=== PATIENT | female | born 1990 | race Caucasian/White ===

== ENCOUNTER 2018-03-04 08:41 | Emergency (ER) | payer OTHER ==
[2018-03-04] MEDS ORDERED: KETOROLAC 30 MG/ML INJ ONE (10:02)
--- NOTE | 2018-03-04 10:24 | ER ---
Nurse's Notes [facility] Name: Rocio Elizabeth Age: 27 yrs Sex: Female : 1990 Arrival Date: 03/04/2018 Time: 08:49 Bed 12 Private MD: Diagnosis: Low back pain Presentation: 03/04 09:33 Presenting complaint: Patient states: was at work, when the dog she was handling bolted sg pulling me forward and I guess I stepped into a whole, now my lower back hurts, the pain is relieved when I can hold myself up in a sitting position, it feels like it relieves a lot of the pressure. Transition of care: patient was not received from another setting of care. Onset of symptoms was March 04, 2018. Risk Assessment: Do you want to hurt yourself or someone else? Patient reports no desire to harm self or others. Initial Sepsis Screen: Does the patient meet any 2 criteria? No. Patient's initial sepsis screen is negative. Does the patient have a suspected source of infection? No. Patient's initial sepsis screen is negative. Care prior to arrival: None. 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 - Social history:: Smoking status: Patient uses tobacco products, smokes one pack cigarettes per day. - Ebola Screening: : Patient negative for fever greater than or equal to 101.5 degrees Fahrenheit, and additional compatible Ebola Virus Disease symptoms Patient denies exposure to infectious person Patient denies travel to an Ebola-affected area in the 21 days before illness onset No symptoms or risks identified at this time. Screenin:04 Abuse screen: Denies threats or abuse. Denies injuries from another. Nutritional sg screening: No deficits noted. Tuberculosis screening: No symptoms or risk factors identified. Never had TB. Fall Risk None identified. Assessment: 10:03 General: Appears in no apparent distress. uncomfortable, well groomed, well developed, sg well nourished, Behavior is calm, cooperative, appropriate for age. Pain: Complains of pain in low back area Quality of pain is described as aching, sharp. Neuro: Level of Consciousness is awake, alert, obeys commands, Oriented to person, place, time, situation, Assembler Flexible Leads are equal bilaterally Moves all extremities. Full function Gait is steady, Speech is normal, Facial symmetry appears normal, Pupils are PERRLA. Cardiovascular: Heart tones S1 S2 present Capillary refill is brisk in bilateral fingers Patient's skin is warm and dry. Chest pain is denied. Respiratory: Airway is patent Respiratory effort is even, unlabored, Respiratory pattern is regular, symmetrical, Breath sounds are clear. GI: Abdomen is round non-distended, Reports normal bowel habits, tolerance of fluids, tolerance of food, Patient currently denies diarrhea, nausea, pain, vomiting. : No signs and/or symptoms were reported regarding the genitourinary system. EENT: No signs and/or symptoms were reported regarding the EENT system. Derm: Skin is pink, warm \T\ dry. Musculoskeletal: Circulation, motion, and sensation intact. Range of motion: intact in all extremities, Swelling absent Reports pain in low back area. Vital Signs: 09:37 BP 125 / 75; Pulse 89; Resp 17; Pulse Ox 99% on R/A; Weight 86.18 kg; Height 5 ft. 5 sg in. (165.10 cm); Pain 10; 09:37 Body Mass Index 31.62 (86.18 kg, 165.10 cm) ED Course: 08:49 Patient arrived in ED. as 09:36 Triage completed. sg 09:37 Arm band placed on. sg 09:38 Juanito Torres PA is PHCP. jr8 09:38 Tucker Randle MD is Attending Physician. jr8 09:57 Grayson Cyr, NAHUM is Primary Nurse. sg 10:03 Patient has correct armband on for positive identification. Bed in low position. Call sg light in reach. Pulse ox on. NIBP on. 10:05 No provider procedures requiring assistance completed. sg 10:30 Patient did not have IV access during this emergency room visit. sg Administered Medications: 10:03 Drug: TORadol 60 mg {Note: L ventrogluteal.} Route: IM; Site: Other; sg 10:40 Follow up: Response: No adverse reaction; Pain is decreased sg Outcome: 10:23 Discharge ordered by . libra 10:30 Discharged to home ambulatory, with family. sg 10:30 Condition: good 10:30 Discharge instructions given to patient, Instructed on discharge instructions, follow up and referral plans. medication usage, safety practices, Demonstrated understanding of instructions, follow-up care, medications, Prescriptions given X 3. 10:33 Patient left the ED. aa5 Signatures: Grayson Cyr RN RN sg Martinez, Amelia as Calderon, Audri, RN RN aa5 Juanito Torres PA PA jr8
--- NOTE | 2018-03-04 10:24 | EDPHYS ---
Physician Documentation [facility] Name: Rocio Elizabeth Age: 27 yrs Sex: Female : 1990 Arrival Date: 03/04/2018 Time: 08:49 Bed 12 Private MD: ED Physician Tucker Randle HPI: 03/04 09:56 This 27 yrs old Female presents to ER via Ambulatory with complaints of Low jr8 Back Pain. 09:56 The patient presents with pain that is acute. The symptoms are located in the low back. jr8 The pain does not radiate. The problem was sustained from twisting. Onset: The symptoms/episode began/occurred acutely, today. Modifying factors: The patient symptoms are alleviated by nothing, the patient symptoms are aggravated by any movement. Associated signs and symptoms: The patient has no apparent associated signs or symptoms. Severity of symptoms: At their worst the symptoms were moderate, in the emergency department the symptoms are unchanged. The patient has not experienced similar symptoms in the past. The patient has not recently seen a physician. Was walking dog at [facility] and twisted back when he pulled. Pain since incident . 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 - Social history:: Smoking status: Patient uses tobacco products, smokes one pack cigarettes per day. - Ebola Screening: : Patient negative for fever greater than or equal to 101.5 degrees Fahrenheit, and additional compatible Ebola Virus Disease symptoms Patient denies exposure to infectious person Patient denies travel to an Ebola-affected area in the 21 days before illness onset No symptoms or risks identified at this time. ROS: 09:56 Eyes: Negative for injury, pain, redness, and discharge, ENT: Negative for injury, jr8 pain, and discharge, Neck: Negative for injury, pain, and swelling, Cardiovascular: Negative for chest pain, palpitations, and edema, Respiratory: Negative for shortness of breath, cough, wheezing, and pleuritic chest pain, Abdomen/GI: Negative for abdominal pain, nausea, vomiting, diarrhea, and constipation, MS/Extremity: Negative for injury and deformity, Skin: Negative for injury, rash, and discoloration, Neuro: Negative for headache, weakness, numbness, tingling, and seizure. 09:56 Back: Positive for pain at rest, pain with movement, of the low back area. Exam: 09:56 Cardiovascular: Regular rate and rhythm with a normal S1 and S2. No gallops, murmurs, jr8 or rubs. Normal PMI, no JVD. No pulse deficits. Respiratory: Lungs have equal breath sounds bilaterally, clear to auscultation and percussion. No rales, rhonchi or wheezes noted. No increased work of breathing, no retractions or nasal flaring. Abdomen/GI: Soft, non-tender, with normal bowel sounds. No distension or tympany. No guarding or rebound. No evidence of tenderness throughout. Skin: Warm, dry with normal turgor. Normal color with no rashes, no lesions, and no evidence of cellulitis. MS/ Extremity: Pulses equal, no cyanosis. Neurovascular intact. Full, normal range of motion. Neuro: Awake and alert, GCS 15, oriented to person, place, time, and situation. Cranial nerves II-XII grossly intact. Motor strength 5/5 in all extremities. Sensory grossly intact. Cerebellar exam normal. Normal gait. 09:56 Back: pain, that is moderate, of the low back area, ROM is painful, with all movement, normal spinal alignment noted, CVA tenderness, is absent, muscle spasm, is appreciated in the left low back and right low back. Vital Signs: 09:37 BP 125 / 75; Pulse 89; Resp 17; Pulse Ox 99% on R/A; Weight 86.18 kg; Height 5 ft. 5 sg in. (165.10 cm); Pain 10/10; 09:37 Body Mass Index 31.62 (86.18 kg, 165.10 cm) MDM: 09:38 Patient medically screened. jr8 10:22 Data reviewed: vital signs, nurses notes, and as a result, I will discharge patient. jr8 Data interpreted: Pulse oximetry: on room air is 99 %. Interpretation: normal. Counseling: I had a detailed discussion with the patient and/or guardian regarding: the historical points, exam findings, and any diagnostic results supporting the discharge/admit diagnosis, the need for outpatient follow up, a family practitioner, to return to the emergency department if symptoms worsen or persist or if there are any questions or concerns that arise at home. Administered Medications: 10:03 Drug: TORadol 60 mg {Note: L ventrogluteal.} Route: IM; Site: Other; 10:40 Follow up: Response: No adverse reaction; Pain is decreased sg Disposition: 15:22 Co-signature as Attending Physician, Tucker Randle MD I agree with the assessment and kdr plan of care. Disposition: 03/04/18 10:23 Discharged to Home. Impression: Low back pain. - Condition is Stable. - Discharge Instructions: Back Pain, Adult, Musculoskeletal Pain, Back Exercises, [id number], Heat Therapy. - Prescriptions for Mobic 7.5 mg Oral Tablet - take 1 tablet by ORAL route once daily take with food; 20 tablet. Cyclobenzaprine 10 mg Oral Tablet - take 1 tablet by ORAL route every 8 hours As needed; 30 tablet. Medrol (Bossman) 4 mg Oral Tablets, Dose Pack - take 1 tablet by ORAL route as directed - follow package instructions; 1 packet. - Work release form, Medication Reconciliation Form, Thank You Letter, Antibiotic Education, Prescription Opioid Use form. - Follow up: Private Physician; When: 1 week; Reason: Recheck today's complaints, Continuance of care, Re-evaluation by your physician. - Problem is new. - Symptoms have improved. Signatures: Grayson Cyr RN RN Tucker Randle MD MD [facility] Claudia Martinez RN RN aa5 Juanito Torres PA PA jr8 Corrections: (The following items were deleted from the chart) 10:33 10:23 03/04/2018 10:23 Discharged to Home. Impression: Low back pain. Condition is aa5 Stable. Forms are Medication Reconciliation Form, Thank You Letter, Antibiotic Education, Prescription Opioid Use. Follow up: Private Physician; When: 1 week; Reason: Recheck today's complaints, Continuance of care, Re-evaluation by your physician. Problem is new. Symptoms have improved. jr8
== END 2018-03-04 10:33 | disposition home or self-care (01) ==
LOC: ER 08:41
DX: M54.5 Low back pain (principal); F32.9 Major depressive disorder, single episode, unspecified; F17.210 Nicotine dependence, cigarettes, uncomplicated
CPT/HCPCS: 96372; 99283

== ENCOUNTER 2018-05-25 13:27 | Emergency (ER) | payer OTHER, SELFPAY ==
--- NOTE | 2018-05-25 13:48 | EDPHYS ---
Physician Documentation [facility] Name: Rocio Elizabeth Age: 28 yrs Sex: Female : 1990 Arrival Date: 05/25/2018 Time: 13:31 Bed 14 Private MD: ED Physician Kris Armstrong HPI: 05/25 13:41 This 28 yrs old Female presents to ER via Ambulatory with complaints of Dog kb Bite. 13:41 The patient was bitten on the dorsal aspect of distal phalanx of right thumb and palmar kb aspect of distal phalanx of right thumb, by a dog, while playing, at work. Onset: The symptoms/episode began/occurred just prior to arrival. Animal information: The animal was reported to appear healthy. Animal's vaccinations are not up to date. The animal is known and can be quarantined, Animal control has been notified. Secondary to the bite the patient reports erythema, pain, multiple puncture wounds, swelling. Associated signs and symptoms: Pertinent positives: pain at site, swelling at site, tenderness. Severity of symptoms: At their worst the symptoms were moderate, in the emergency department the symptoms are unchanged. The patient has not experienced similar symptoms in the past. The patient has not recently seen a physician. 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 - Social history:: Smoking status: Patient uses tobacco products, smokes one pack cigarettes per day. Patient/guardian denies using alcohol. - Ebola Screening: : Patient negative for fever greater than or equal to 101.5 degrees Fahrenheit, and additional compatible Ebola Virus Disease symptoms Patient denies exposure to infectious person Patient denies travel to an Ebola-affected area in the 21 days before illness onset. ROS: 13:41 Constitutional: Negative for fever, chills, and weight loss, Cardiovascular: Negative kb for chest pain, palpitations, and edema, Respiratory: Negative for shortness of breath, cough, wheezing, and pleuritic chest pain, Abdomen/GI: Negative for abdominal pain, nausea, vomiting, diarrhea, and constipation, MS/Extremity: Negative for injury and deformity, Neuro: Negative for headache, weakness, numbness, tingling, and seizure. 13:41 Skin: Positive for erythema, puncture, swelling, of the palmar aspect of distal phalanx of right thumb and dorsal aspect of distal phalanx of right thumb. Exam: 13:41 Constitutional: This is a well developed, well nourished patient who is awake, alert, kb and in no acute distress. Head/Face: Normocephalic, atraumatic. Chest/axilla: Normal chest wall appearance and motion. Nontender with no deformity. No lesions are appreciated. Cardiovascular: Regular rate and rhythm with a normal S1 and S2. No gallops, murmurs, or rubs. Normal PMI, no JVD. No pulse deficits. Respiratory: Lungs have equal breath sounds bilaterally, clear to auscultation and percussion. No rales, rhonchi or wheezes noted. No increased work of breathing, no retractions or nasal flaring. Abdomen/GI: Soft, non-tender, with normal bowel sounds. No distension or tympany. No guarding or rebound. No evidence of tenderness throughout. Back: No spinal tenderness. No costovertebral tenderness. Full range of motion. MS/ Extremity: Pulses equal, no cyanosis. Neurovascular intact. Full, normal range of motion. Neuro: Awake and alert, GCS 15, oriented to person, place, time, and situation. Cranial nerves II-XII grossly intact. Motor strength 5/5 in all extremities. Sensory grossly intact. Cerebellar exam normal. Normal gait. 13:41 Skin: injury, bite(s), superficial, of the palmar aspect of distal phalanx of right thumb and dorsal aspect of distal phalanx of right thumb. Vital Signs: 13:35 BP 125 / 76; Pulse 110; Resp 18; Temp 97.6(TE); Pulse Ox 98% on R/A; Weight 79.83 kg; hj Height 5 ft. 5 in. (165.10 cm); Pain 6/10; 13:35 Body Mass Index 29.29 (79.83 kg, 165.10 cm) MDM: 13:33 Patient medically screened. kb 13:46 Data reviewed: vital signs, nurses notes. Data interpreted: Pulse oximetry: on room air kb is 98 %. Interpretation: normal. Counseling: I had a detailed discussion with the patient and/or guardian regarding: the historical points, exam findings, and any diagnostic results supporting the discharge/admit diagnosis, the need for outpatient follow up, a family practitioner, to return to the emergency department if symptoms worsen or persist or if there are any questions or concerns that arise at home. 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 Exp: bp 05/19/2020. Lot #: [id number]. } Route: IM; Site: left deltoid; 13:57 Follow up: Response: No adverse reaction bp 13:47 Drug: Augmentin 875 mg Route: PO; bp 13:57 Follow up: Response: No adverse reaction bp Disposition: 05/26 07:05 Co-signature as Attending Physician, Kris Armstorng MD I agree with the assessment and shakir plan of care. Disposition: 05/25/18 13:47 Discharged to Home. Impression: Bitten by dog. - Condition is Stable. - Discharge Instructions: Animal Bite, [id number]. - Prescriptions for Augmentin 875- 125 mg Oral Tablet - take 1 tablet by ORAL route every 12 hours for 7 days; 14 tablet. - Medication Reconciliation Form, Thank You Letter, Antibiotic Education, Prescription Opioid Use form. - Follow up: Emergency Department; When: As needed; Reason: Worsening of condition. Follow up: Private Physician; When: 2 - 3 days; Reason: Recheck today's complaints, Continuance of care, Re-evaluation by your physician. Signatures: Pat Garcia, FIRE MARSHAL REFINERY-C FIRE MARSHAL REFINERY-Dannyb Kris Armstrong MD MD cha Joaquin, Henry, RN RN Zaki Norman, NAHUM RN bp Corrections: (The following items were deleted from the chart) 05/25 13:56 13:47 05/25/2018 13:47 Discharged to Home. Impression: Bitten by dog. Condition is bp Stable. Forms are Medication Reconciliation Form, Thank You Letter, Antibiotic Education, Prescription Opioid Use. Follow up: Emergency Department; When: As needed; Reason: Worsening of condition. Follow up: Private Physician; When: 2 - 3 days; Reason: Recheck today's complaints, Continuance of care, Re-evaluation by your physician. kb
--- NOTE | 2018-05-25 13:48 | ER ---
Nurse's Notes [facility] Name: Rocio Elizabeth Age: 28 yrs Sex: Female : 1990 Arrival Date: 05/25/2018 Time: 13:31 Bed 14 Private MD: Diagnosis: Bitten by dog Presentation: 05/25 13:31 Presenting complaint: Patient states: i worked at [employer] and was bitten by a newly intake hj medium dog today at my R thumb, unknown if vaccination is updated;. Transition of care: patient was not received from another setting of care. Onset of symptoms was May 25, 2018. Risk Assessment: Do you want to hurt yourself or someone else? Patient reports no desire to harm self or others. Initial Sepsis Screen: Does the patient meet any 2 criteria? No. Patient's initial sepsis screen is negative. Does the patient have a suspected source of infection? No. Patient's initial sepsis screen is negative. Care prior to arrival: None. 13:31 Method Of Arrival: Ambulatory 13:31 Acuity: KO 4 hj Triage Assessment: 13:33 Bite description: bite sustained to dorsal aspect of distal phalanx of right thumb by a hj dog, animal information: Appearance: appeared well, is from animal, vaccination(s) is unknown, was sustained 30-60 minutes ago. Animal status: unknown but captured. 13:34 General: Appears in no apparent distress. uncomfortable, Behavior is calm, cooperative, hj appropriate for age. Pain: Complains of pain in dorsal aspect of distal phalanx of right thumb Pain currently is 6 out of 10 on a pain scale. 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 - Social history:: Smoking status: Patient uses tobacco products, smokes one pack cigarettes per day. Patient/guardian denies using alcohol. - Ebola Screening: : Patient negative for fever greater than or equal to 101.5 degrees Fahrenheit, and additional compatible Ebola Virus Disease symptoms Patient denies exposure to infectious person Patient denies travel to an Ebola-affected area in the 21 days before illness onset. Screenin:34 Abuse screen: Denies threats or abuse. Denies injuries from another. Nutritional hj screening: No deficits noted. Tuberculosis screening: No symptoms or risk factors identified. Fall Risk None identified. Assessment: 13:38 General: Appears in no apparent distress. comfortable, Behavior is calm, cooperative, bp appropriate for age. Pain: Complains of pain in dorsal aspect of distal phalanx of right thumb. Neuro: Level of Consciousness is awake, alert, obeys commands, Oriented to person, place, time, situation, Appropriate for age. Cardiovascular: No deficits noted. Respiratory: Airway is patent Respiratory effort is even, unlabored, Respiratory pattern is regular, symmetrical. GI: No signs and/or symptoms were reported involving the gastrointestinal system. : No signs and/or symptoms were reported regarding the genitourinary system. EENT: No deficits noted. Derm: Wound noted dorsal aspect of distal phalanx of right thumb. Musculoskeletal: Circulation, motion, and sensation intact. Range of motion: intact in all extremities. 13:38 Derm: Skin is intact, is healthy with good turgor, Skin is pink, warm \T\ dry. bp 13:55 Reassessment: PT D/C HOME AMBULATORY, DX WITH DOG BITE. bp Vital Signs: 13:35 BP 125 / 76; Pulse 110; Resp 18; Temp 97.6(TE); Pulse Ox 98% on R/A; Weight 79.83 kg; hj Height 5 ft. 5 in. (165.10 cm); Pain 6/10; 13:35 Body Mass Index 29.29 (79.83 kg, 165.10 cm) ED Course: 13:31 Patient arrived in ED. hj 13:32 Triage completed. hj 13:33 Pat Garcia FNP-C is PHCP. kb 13:33 Kris Armstrong MD is Attending Physician. kb 13:35 Arm band placed on left wrist. hj 13:36 Patient has correct armband on for positive identification. Bed in low position. Call light in reach. Side rails up X 1. 13:38 Zaki Hernandez, RN is Primary Nurse. bp 13:55 No provider procedures requiring assistance completed. Patient did not have IV access bp during this emergency room visit. Administered Medications: 13:47 Drug: Tetanus-Diphtheria Toxoid Adult 0.5 ml {Travel Accommodations Rater: Trampoline. Exp: bp 05/19/2020. Lot #: [id number]. } Route: IM; Site: left deltoid; 13:57 Follow up: Response: No adverse reaction bp 13:47 Drug: Augmentin 875 mg Route: PO; bp 13:57 Follow up: Response: No adverse reaction bp Outcome: 13:47 Discharge ordered by MD. may 13:55 Discharged to home ambulatory. bp 13:55 Condition: stable 13:55 Discharge instructions given to patient, Instructed on discharge instructions, follow up and referral plans. medication usage, wound care, Demonstrated understanding of instructions, follow-up care, medications, wound care, Prescriptions given X 1. 13:56 Patient left the ED. bp Signatures: Pat Garcia FNP-C FNP-Juan Ramos, RN RN Zaki Norman RN RN bp Corrections: (The following items were deleted from the chart) 13:36 13:35 Pulse 110bpm; Resp 18bpm; Pulse Ox 98% RA; Temp 97.6F Temporal; 79.83 kg; Height hj 5 ft. 5 in.; BMI: 29.2; Pain 6/10; hj 13:41 13:35 Derm: Skin Skin is bp
[2018-05-25] MEDS ORDERED: AMOX/K CLAV 875 MG TAB ONE (13:49)
[2018-05-25] MEDS ORDERED: TETANUS & DIPHTHERIA TOX,ADULT 0.5 ML VIAL ONE (13:49)
== END 2018-05-25 13:56 | disposition home or self-care (01) ==
LOC: ER 13:27
DX: S60.371A Other superficial bite of right thumb, initial encounter (principal); W54.0XXA Bitten by dog, initial encounter; Y93.89 Activity, other specified; Y92.89 Other specified places as the place of occurrence of the external cause; Y99.8 Other external cause status; Z72.0 Tobacco use; Z23 Encounter for immunization; F32.9 Major depressive disorder, single episode, unspecified
CPT/HCPCS: 90714; 99283

== ENCOUNTER 2019-06-15 22:24 | Emergency (ER) | payer SELFPAY ==
--- NOTE | 2019-06-15 23:00 | ER ---
Nurse's Notes [facility] Name: Rocio Elizabeth Age: 29 yrs Sex: Female : 1990 Arrival Date: 06/15/2019 Time: 22:29 Bed Waiting Private MD: Diagnosis: Presentation: 06/15 22:58 Presenting complaint: noted by registration that pt left. ED Course: 22:29 Patient arrived in ED. ag3 22:37 Patient's name was called from ER lobby. Unable to locate patient. Will disposition as fc left without being seen by a provider. Administered Medications: No medications were administered Outcome: 22:58 Patient left the ED. Signatures: Eliane Caballero RN RN Aarti Ramirez ag3
== END 2019-06-15 22:58 | disposition left against medical advice (07) ==
LOC: ER 22:24
DX: Z53.21 Procedure and treatment not carried out due to patient leaving prior to being seen by health care provider (principal)
CPT/HCPCS: 99281

== ENCOUNTER 2019-06-16 13:09 | Emergency (ER) | payer SELFPAY ==
[2019-06-16] MEDS ORDERED: IBUPROFEN 400 MG TAB ONE (13:55)
[2019-06-16] MEDS ORDERED: IBUPROFEN 200 MG TAB PO ONE (13:56)
--- NOTE | 2019-06-16 14:26 | ER ---
Nurse's Notes [facility] Name: Rocio Elizabeth Age: 29 yrs Sex: Female : 1990 Arrival Date: 06/16/2019 Time: 13:11 Bed 19 Private MD: Unknown, Unknown Diagnosis: Acute upper respiratory infection, unspecified;Acute pharyngitis Presentation: 06/16 13:15 Presenting complaint: Patient states: sore throat started 4 days ago, next day started sv with body aches and chest burning. Denies fever. Transition of care: patient was not received from another setting of care. Onset of symptoms was June 12, 2019. Risk Assessment: Do you want to hurt yourself or someone else? Patient reports no desire to harm self or others. Initial Sepsis Screen: Does the patient meet any 2 criteria? No. Patient's initial sepsis screen is negative. Does the patient have a suspected source of infection? No. Patient's initial sepsis screen is negative. Care prior to arrival: None. 13:15 Method Of Arrival: Ambulatory sv 13:15 Acuity: KO 3 sv FILLETER: 16:17 LMP N/A - iw Historical: - Allergies: 13:16 No Known Allergies; sv - PMHx: 13:16 Depression; sv - Immunization history:: Adult Immunizations up to date. - Social history:: Smoking status: Patient uses tobacco products, smokes one pack cigarettes per day. - Ebola Screening: : No symptoms or risks identified at this time. Screenin:32 Abuse screen: Denies threats or abuse. Nutritional screening: No deficits noted. iw Tuberculosis screening: No symptoms or risk factors identified. Fall Risk None identified. Assessment: 13:32 General: Appears in no apparent distress. comfortable, Behavior is calm, cooperative, iw Reports fever for > 3 days. Pain: Complains of pain in throat Pain currently is 4 out of 10 on a pain scale. Pain began 4 days ago. Neuro: Level of Consciousness is awake, alert, obeys commands, Oriented to person, place, time, situation, Appropriate for age. Cardiovascular: Capillary refill < 3 seconds Patient's skin is warm and dry. Respiratory: Airway is patent Respiratory effort is even, unlabored, Respiratory pattern is regular, symmetrical. GI: Abdomen is flat, Patient currently denies nausea, vomiting. Derm: Skin is intact, is healthy with good turgor, Skin is pink, warm \T\ dry. Musculoskeletal: Capillary refill < 3 seconds, Range of motion: intact in all extremities. 14:31 Reassessment: Patient appears in no apparent distress at this time. I agree with above assessment. Vital Signs: 13:16 BP 133 / 75; Pulse 97; Resp 18; Temp 98.2; Pulse Ox 98% ; Weight 72.57 kg; Height 5 ft. sv 5 in. (165.10 cm); Pain 4/10; 14:40 BP 128 / 69; Pulse 62; Resp 16; Pulse Ox 99% on R/A; Pain 2/10; em 13:16 Body Mass Index 26.63 (72.57 kg, 165.10 cm) sv ED Course: 13:11 Patient arrived in ED. ag5 13:12 Unknown, Unknown is Private Physician. ag5 13:16 Triage completed. sv 13:17 Liban Bran PA is [facility]. [facility] 13:17 Tucker Randle MD is Attending Physician. [facility] 13:17 Arm band placed on. sv 13:21 Antonietta Hinkle, RN is Primary Nurse. iw 13:32 Patient has correct armband on for positive identification. Bed in low position. Call iw light in reach. Adult w/ patient. 13:55 Flu and/or RSV swab sent to lab. Strep swab sent to lab. em 14:39 No provider procedures requiring assistance completed. Patient did not have IV access em during this emergency room visit. Administered Medications: 14:01 Drug: Motrin 600 mg Route: PO; em 14:31 Follow up: Response: No adverse reaction em Outcome: 14:25 Discharge ordered by . [facility] 14:39 Discharged to home ambulatory. em 14:39 Condition: good 14:39 Discharge instructions given to patient, Instructed on discharge instructions, follow up and referral plans. medication usage, Demonstrated understanding of instructions, follow-up care, medications, Prescriptions given X 1. 14:40 Patient left the ED. em Signatures: Lainey Navas, RN Anabela Galvez ch, RN RN Liban Bran PA PA Stefano Kaplan, VALIDATION INTERN VALIDATION INTERN em Antonietta Hinkle, NAHUM RN Ino Gabriel [facility]
--- NOTE | 2019-06-16 14:26 | EDPHYS ---
Physician Documentation [facility] Name: Rocio Elizabeth Age: 29 yrs Sex: Female : 1990 Arrival Date: 06/16/2019 Time: 13:11 Bed 19 Private MD: Unknown, Unknown ED Physician Tucker Randle HPI: 06/16 13:37 This 29 yrs old Female presents to ER via Ambulatory with complaints of Cold jmm Symptoms. 13:37 The patient or guardian reports cough. Onset: The symptoms/episode began/occurred jmm gradually, 2 day(s) ago. Modifying factors: The symptoms are alleviated by nothing. the symptoms are aggravated by lying flat. Associated signs and symptoms: Pertinent positives: sore throat. This is a 29 year old female with a history of depression that presents to the ED with complaints of cough, sore throat, congestion, body aches worsening last night. Patient states multiple coworkers have similar symptoms. . 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 - Social history:: Smoking status: Patient uses tobacco products, smokes one pack cigarettes per day. - Ebola Screening: : No symptoms or risks identified at this time. ROS: 13:37 Constitutional: Negative for fever, chills, and weight loss, Cardiovascular: Negative jmm for chest pain, palpitations, and edema. 13:37 Abdomen/GI: Negative for abdominal pain, nausea, vomiting, diarrhea, and constipation, Back: Negative for injury and pain. 13:37 Respiratory: Positive for cough. 13:37 All other systems are negative. Exam: 13:37 Head/Face: atraumatic. Eyes: EOMI, no conjunctival erythema appreciated ENT: Moist jmm Mucus Membranes Neck: Trachea midline, Supple Chest/axilla: Normal chest wall appearance and motion. Cardiovascular: Regular rate and rhythm. No edema appreciated 13:37 Abdomen/GI: Non distended, soft Back: Normal ROM Skin: General appearance color normal MS/ Extremity: Moves all extremities, no obvious deformities appreciated, no edema noted to the lower extremities Neuro: Awake and alert, normal gait Psych: Behavior is normal, Mood is normal, Patient is cooperative and pleasant 13:37 Constitutional: The patient appears alert, awake, uncomfortable. 13:37 Respiratory: the patient does not display signs of respiratory distress, Respirations: normal, Breath sounds: are clear throughout. Vital Signs: 13:16 BP 133 / 75; Pulse 97; Resp 18; Temp 98.2; Pulse Ox 98% ; Weight 72.57 kg; Height 5 ft. sv 5 in. (165.10 cm); Pain 4/10; 14:40 BP 128 / 69; Pulse 62; Resp 16; Pulse Ox 99% on R/A; Pain 2/10; em 13:16 Body Mass Index 26.63 (72.57 kg, 165.10 cm) sv MDM: 13:37 Patient medically screened. [facility] 14:24 Data reviewed: vital signs, nurses notes. Counseling: I had a detailed discussion with [facility] the patient and/or guardian regarding: the historical points, exam findings, and any diagnostic results supporting the discharge/admit diagnosis, lab results, the need for outpatient follow up, to return to the emergency department if symptoms worsen or persist or if there are any questions or concerns that arise at home. ED course: Patient is alert and non toxic in appearance. Patient advised to follow up with pcp and otherwise given strict return precautions. Patient understood and agrees with the plan of care. . 06/16 13:42 Order name: Flu; Complete Time: 14:24 [facility] 06/16 13:42 Order name: Strep; Complete Time: 14:18 [facility] 06/16 14:19 Order name: Throat Culture EDMS Administered Medications: 14:01 Drug: Motrin 600 mg Route: PO; em 14:31 Follow up: Response: No adverse reaction em Disposition: 15:12 Co-signature as Attending Physician, Tucker Randle MD I agree with the assessment and kdr plan of care. Disposition: 06/16/19 14:25 Discharged to Home. Impression: Acute upper respiratory infection, unspecified, Acute pharyngitis. - Condition is Stable. - Discharge Instructions: Pharyngitis, Upper Respiratory Infection, Adult. - Prescriptions for Zithromax Z- Bossman 250 mg Oral Tablet - take 1 tablet by ORAL route as directed for 5 days Day 1 - take two (2) tablets one time. Day 2, 3, 4 , 5 take one (1) tablet once daily.; 6 tablet. - Medication Reconciliation Form, Thank You Letter, Antibiotic Education, Prescription Opioid Use, Work release form form. - Follow up: Private Physician; When: 2 - 3 days; Reason: Recheck today's complaints, Continuance of care, Re-evaluation by your physician. Signatures: Dispatcher [employer] Anabela Archuleta, NAHUM RN Tucker Post MD MD kdr Mickail, Joel, PA PA jmm Munoz, Edgar, WELL PULLER HEAD WELL PULLER HEAD em Corrections: (The following items were deleted from the chart) 14:40 14:25 06/16/2019 14:25 Discharged to Home. Impression: Acute upper respiratory em infection, unspecified; Acute pharyngitis. Condition is Stable. Forms are Medication Reconciliation Form, Thank You Letter, Antibiotic Education, Prescription Opioid Use. Follow up: Private Physician; When: 2 - 3 days; Reason: Recheck today's complaints, Continuance of care, Re-evaluation by your physician. gonzález
[2019-06-16 14:51] VITALS: TEMP 98.2
[2019-06-16 14:52] VITALS: BP 128/69; O2SAT 99
== END 2019-06-16 14:40 | disposition home or self-care (01) ==
LOC: ER 13:09
DX: J02.9 Acute pharyngitis, unspecified (principal); F17.210 Nicotine dependence, cigarettes, uncomplicated; F32.9 Major depressive disorder, single episode, unspecified
CPT/HCPCS: 87070; 87081; 87804; 99283

== ENCOUNTER 2020-09-26 09:06 | Emergency (ER) | payer SELFPAY ==
[2020-09-26 11:09] LABS: Absolute Lymphocytes (CBC) 0.5 K/uL (0.7-4.9); Basophils % 1.8 % (0-1.3); Hematocrit 39.3 % (36.0-45.0); Lymphocytes % 5.3 % (15.3-44.8); MPV 7.8 fL (7.6-11.3); RBC Red Blood Cell Count 4.63 M/uL (3.86-4.86)
[2020-09-26] MEDS ORDERED: FAMOTIDINE 20 MG/2 ML VIAL IV ONE (11:19)
[2020-09-26] MEDS ORDERED: ONDANSETRON 4 MG/2 ML VIAL ONE (11:19)
[2020-09-26] MEDS ORDERED: NA CHLORIDE 0.9% 1,000 ML ONE (11:19)
[2020-09-26 11:26] LABS: Albumin 3.9 g/dL (3.4-5.0); Bilirubin Direct 0.1 mg/dL (0-0.2); Bilirubin Total 0.5 mg/dL (0.2-1.0); Potassium 4.2 mmol/L (3.5-5.1); Protein, Total 8.1 g/dL (6.4-8.2)
[2020-09-26 12:16] LABS: Blood Morphology Comment NOT SEEN (NOT SEEN); Platelet Estimate ADEQ; White Blood Cell Scan OK (OK)
[2020-09-26 12:28] LABS: SARS-COV-2 RT PCR NEGATIVE (NEGATIVE)
--- NOTE | 2020-09-26 12:52 | ER ---
Nurse's Notes [facility] Name: Rocio Elizabeth Age: 30 yrs Sex: Female : 1990 Arrival Date: 09/26/2020 Time: 09:07 Bed 17 Private MD: Diagnosis: Vomiting;Diarrhea, unspecified Presentation: 09/26 09:16 Chief complaint: Patient states: diarrhea, headache, bodyaches, fatigue since 0330 this morning. Motrin taken at 0500 today. Coronavirus screen: Client denies travel out of the [place] in the last 14 days. Client presents with at least one sign or symptom that may indicate coronavirus-19. Standard/surgical mask placed on the client. Provider contacted for isolation considerations. Ebola Screen: No symptoms or risks identified at this time. Risk Assessment: Do you want to hurt yourself or someone else? Patient reports no desire to harm self or others. Onset of symptoms was September 26, 2020. 09:16 Method Of Arrival: Ambulatory sv 09:16 Acuity: KO 3 sv 09:17 Initial Sepsis Screen: Does the patient meet any 2 criteria? HR > 90 bpm. No. Patient's sv initial sepsis screen is negative. Does the patient have a suspected source of infection? No. Patient's initial sepsis screen is negative. Triage Assessment: 09:16 General: Appears in no apparent distress. uncomfortable, Behavior is calm, cooperative, sv appropriate for age. Neuro: Level of Consciousness is awake, alert, obeys commands, Oriented to person, place, time, situation, Gait is steady. Respiratory: Respiratory effort is even, unlabored. Historical: - Allergies: :17 No Known Allergies; sv - PMHx: 09:17 Depression; sv - Immunization history:: Adult Immunizations unknown. - Social history:: Smoking status: unknown. Screenin:19 Abuse screen: Denies threats or abuse. Denies injuries from another. Nutritional ph screening: No deficits noted. Tuberculosis screening: No symptoms or risk factors identified. Fall Risk None identified. Assessment: 11:15 General: Appears in no apparent distress. comfortable, well groomed, Behavior is calm, ph cooperative, appropriate for age, Denies fever. Pain: Denies pain. Neuro: Level of Consciousness is awake, alert, obeys commands, Oriented to person, place, time, situation. Cardiovascular: Capillary refill < 3 seconds in bilateral fingers Patient's skin is warm and dry. Respiratory: Airway is patent Respiratory effort is even, unlabored. GI: Abdomen is non-distended, Reports diarrhea, nausea, vomiting. Derm: Skin is intact, Skin is pink, warm \T\ dry. Musculoskeletal: Circulation, motion, and sensation intact. Range of motion: intact in all extremities. 12:00 Reassessment: Patient appears in no apparent distress at this time. Patient and/or ph family updated on plan of care and expected duration. Pain level reassessed. Patient is alert, oriented x 3, equal unlabored respirations, skin warm/dry/pink. Vital Signs: 09:17 BP 104 / 67; Pulse 116; Resp 18; Temp 98.5(O); Pulse Ox 100% on R/A; Weight 86.18 kg; sv Height 5 ft. 5 in. (165.10 cm); 11:15 BP 109 / 66; Pulse 71; Resp 18; Pulse Ox 98% on R/A; ph 12:30 BP 112 / 70; Pulse 71; Resp 18; Temp 98.0; Pulse Ox 99% on R/A; ph 09:17 Body Mass Index 31.62 (86.18 kg, 165.10 cm) sv ED Course: 09:07 Patient arrived in ED. as 09:17 Triage completed. sv 09:17 Arm band placed on. sv 10:01 Delores Kern, RN is Primary Nurse. ph 10:19 Patient has correct armband on for positive identification. Bed in low position. Call ph light in reach. Side rails up X 1. Pulse ox on. NIBP on. Door closed. Noise minimized. 10:35 Tucker Randle MD is Attending Physician. kdr 10:50 Inserted saline lock: 20 gauge in left antecubital area, using aseptic technique. ph 13:06 No provider procedures requiring assistance completed. IV discontinued, intact, ph bleeding controlled, No redness/swelling at site. Pressure dressing applied. Administered Medications: 11:16 Drug: NS 0.9% 1000 ml Route: IV; Rate: 1 bolus; Site: left antecubital; ph 13:06 Follow up: Response: No adverse reaction; IV Status: Completed infusion; IV Intake: ph 1000ml 11:17 Drug: Zofran (Ondansetron) 4 mg Route: IVP; Site: left antecubital; ph 13:06 Follow up: Response: No adverse reaction; Nausea is decreased ph 11:17 Drug: Pepcid 20 mg Route: IVP; Site: left antecubital; ph 13:05 Follow up: Response: No adverse reaction ph Intake: 13:06 IV: 1000ml; Total: 1000ml. ph Outcome: 12:51 Discharge ordered by . kdr 13:07 Discharged to home ambulatory. ph 13:07 Condition: good 13:07 Discharge instructions given to patient, Instructed on discharge instructions, follow up and referral plans. medication usage, Demonstrated understanding of instructions, follow-up care, medications, Prescriptions given X 1. 13:07 Patient left the ED. ph Signatures: Anabela Gary RN RN sv Tucker Randle MD MD kdr Martinez, Amelia as Hall, Patricia, RN RN ph Corrections: (The following items were deleted from the chart) 09:19 09:16 Acuity: KO 4 sv sv 09:19 09:17 Pulse 116bpm; Resp 18bpm; Pulse Ox 100% RA; Temp 98.5F Oral; 86.18 kg; Height 5 sv ft. 5 in.; BMI: 31.6; sv
--- NOTE | 2020-09-26 12:52 | EDPHYS ---
Physician Documentation [facility] Name: Rocio Elizabeth Age: 30 yrs Sex: Female : 1990 Arrival Date: 09/26/2020 Time: 09:07 Bed 17 Private MD: ED Physician Tucker Randle HPI: 09/26 10:52 This 30 yrs old Female presents to ER via Ambulatory with complaints of kdr Vomiting/Diarrhea, Headache. 10:52 The patient presents to the emergency department with nausea, that is mild, vomiting, kdr that is intermittent, diarrhea, that is intermittent. Onset: The symptoms/episode began/occurred this morning. Possible causes: unknown. The symptoms are aggravated by food , The symptoms are alleviated by nothing. Associated signs and symptoms: Pertinent positives: abdominal pain, diarrhea, nausea, vomiting, Pertinent negatives: belching, constipation, dysuria, fever, GI bleeding, hematuria, vaginal discharge. Severity of symptoms: At their worst the symptoms were moderate just prior to arrival, in the emergency department the symptoms have improved mildly. The patient has not experienced similar symptoms in the past. The patient has not recently seen a physician. Historical: - Allergies: 09:17 No Known Allergies; sv - PMHx: 09:17 Depression; sv - Immunization history:: Adult Immunizations unknown. - Social history:: Smoking status: unknown. ROS: 10:52 Constitutional: Negative for fever, chills, and weight loss, Eyes: Negative for injury, kdr pain, redness, and discharge, ENT: Negative for injury, pain, and discharge, Neck: Negative for injury, pain, and swelling, Cardiovascular: Negative for chest pain, palpitations, and edema, Respiratory: Negative for shortness of breath, cough, wheezing, and pleuritic chest pain, Back: Negative for injury and pain, : Negative for injury, bleeding, discharge, and swelling, MS/Extremity: Negative for injury and deformity, Skin: Negative for injury, rash, and discoloration, Neuro: Negative for weakness, numbness, tingling, and seizure activity. Psych: Negative for depression, anxiety, suicide ideation, homicidal ideation, and hallucinations, Allergy/Immunology: Negative for hives, rash, and allergies, Endocrine: Negative for neck swelling, polydipsia, polyuria, polyphagia, and marked weight changes, Hematologic/Lymphatic: Negative for swollen nodes, abnormal bleeding, and unusual bruising. 10:52 Abdomen/GI: Positive for nausea, vomiting, and diarrhea. 10:52 Neuro: Positive for headache. Exam: 10:52 Constitutional: This is a well developed, well nourished patient who is awake, alert, kdr and in no acute distress. Head/Face: Normocephalic, atraumatic. Eyes: Pupils equal round and reactive to light, extra-ocular motions intact. Lids and lashes normal. Conjunctiva and sclera are non-icteric and not injected. Cornea within normal limits. Periorbital areas with no swelling, redness, or edema. Neck: Trachea midline, no thyromegaly or masses palpated, and no cervical lymphadenopathy. Supple, full range of motion without nuchal rigidity, or vertebral point tenderness. No Meningismus. Chest/axilla: Normal chest wall appearance and motion. Nontender with no deformity. No lesions are appreciated. Cardiovascular: Regular rate and rhythm with a normal S1 and S2. No gallops, murmurs, or rubs. Normal PMI, no JVD. No pulse deficits. Respiratory: Lungs have equal breath sounds bilaterally, clear to auscultation and percussion. No rales, rhonchi or wheezes noted. No increased work of breathing, no retractions or nasal flaring. Abdomen/GI: Soft, non-tender, with normal bowel sounds. No distension or tympany. No guarding or rebound. No evidence of tenderness throughout. Back: No spinal tenderness. No costovertebral tenderness. Full range of motion. Skin: Warm, dry with normal turgor. Normal color with no rashes, no lesions, and no evidence of cellulitis. MS/ Extremity: Pulses equal, no cyanosis. Neurovascular intact. Full, normal range of motion. Neuro: Awake and alert, GCS 15, oriented to person, place, time, and situation. Cranial nerves II-XII grossly intact. Motor strength 5/5 in all extremities. Sensory grossly intact. Cerebellar exam normal. Normal gait. Psych: Awake, alert, with orientation to person, place and time. Behavior, mood, and affect are within normal limits. Vital Signs: 09:17 BP 104 / 67; Pulse 116; Resp 18; Temp 98.5(O); Pulse Ox 100% on R/A; Weight 86.18 kg; sv Height 5 ft. 5 in. (165.10 cm); 11:15 BP 109 / 66; Pulse 71; Resp 18; Pulse Ox 98% on R/A; ph 12:30 BP 112 / 70; Pulse 71; Resp 18; Temp 98.0; Pulse Ox 99% on R/A; ph 09:17 Body Mass Index 31.62 (86.18 kg, 165.10 cm) sv MDM: 10:52 Data reviewed: vital signs, nurses notes, lab test result(s). Counseling: I had a kdr detailed discussion with the patient and/or guardian regarding: the historical points, exam findings, and any diagnostic results supporting the discharge/admit diagnosis, lab results, the need for outpatient follow up. 12:51 Patient medically screened. kdr 09/26 10:36 Order name: Basic Metabolic Panel; Complete Time: 11:33 kdr 09/26 10:36 Order name: CBC with Diff; Complete Time: 12:26 kdr 09/26 10:36 Order name: Hepatic Function; Complete Time: 11:33 kdr 09/26 10:36 Order name: Lipase; Complete Time: 11:33 kdr 09/26 10:36 Order name: IV Saline Lock; Complete Time: 11:17 kdr 09/26 10:36 Order name: Labs collected and sent; Complete Time: 11:17 kdr 09/26 11:18 Order name: CBC Smear Scan; Complete Time: 12:26 EDMS 09/26 12:29 Order name: COVID-19/FLU A+B; Complete Time: 12:49 EDMS Administered Medications: 11:16 Drug: NS 0.9% 1000 ml Route: IV; Rate: 1 bolus; Site: left antecubital; ph 13:06 Follow up: Response: No adverse reaction; IV Status: Completed infusion; IV Intake: ph 1000ml 11:17 Drug: Zofran (Ondansetron) 4 mg Route: IVP; Site: left antecubital; ph 13:06 Follow up: Response: No adverse reaction; Nausea is decreased ph 11:17 Drug: Pepcid 20 mg Route: IVP; Site: left antecubital; ph 13:05 Follow up: Response: No adverse reaction ph Disposition: 09/26/20 12:51 Discharged to Home. Impression: Vomiting, Diarrhea, unspecified. - Condition is Stable. - Discharge Instructions: Nausea and Vomiting, Adult, [id number], Diarrhea, Adult, [id number]. - Prescriptions for promethazine 25 mg Oral Tablet - take 1 tablet by ORAL route every 6 hours As needed; 20 tablet. - Medication Reconciliation Form, Thank You Letter, Work release form form. - Follow up: Private Physician; When: 2 - 3 days; Reason: If symptoms return, Further diagnostic work-up, Recheck today's complaints, Continuance of care, Re-evaluation by your physician. - Problem is new. - Symptoms have improved. Signatures: Dispatcher [employer] EDUT Anabela Gary RN RN sv Tucker Randle MD MD kdr Delores Kern RN RN ph Corrections: (The following items were deleted from the chart) 11:38 10:52 CORONAVIRUS+MR.LAB.BRZ ordered. [facility] 11:39 10:52 Influenza Screen (A \T\ B)+BA.LAB.BRZ ordered. [facility] 13:07 12:51 09/26/2020 12:51 Discharged to Home. Impression: Vomiting; Diarrhea, unspecified. ph Condition is Stable. Forms are Medication Reconciliation Form, Thank You Letter, Antibiotic Education, Prescription Opioid Use. Follow up: Private Physician; When: 2 - 3 days; Reason: If symptoms return, Further diagnostic work-up, Recheck today's complaints, Continuance of care, Re-evaluation by your physician. Problem is new. Symptoms have improved. kdr
[2020-09-26 13:15] VITALS: BP 112/70; TEMP 98; O2SAT 99
== END 2020-09-26 13:07 | disposition home or self-care (01) ==
LOC: ER 09:06
DX: R19.7 Diarrhea, unspecified (principal); Z20.822 Contact with and (suspected) exposure to COVID-19; R51.9 Headache, unspecified
CPT/HCPCS: 0240U; 36415; 80048; 80076; 83690; 85025; 96361; 96374; 96375; 99284; J2405; J7030